=== PATIENT | male | born 1955 | race Caucasian/White ===

== ENCOUNTER 2023-01-28 09:27 | Day surgery (SDC) | payer MEDICARE, OTHER ==
[~2023-01-28] VITALS: Ht 180.3 cm; Wt 93.9 kg
[~2023-01-28 09:27] MED LIST: CELE1CAP8 PO; FINA5TAB4 PO; GABA-1250 PO; METO25TA93 PO; ROSU20TA14 PO
[2023-01-28] MEDS ORDERED: IODIXANOL 320MG/ML 100ML BTL IV ONE (11:20)
[2023-01-28] MEDS ORDERED: LIDOCAINE 2%HCL (LOCAL ANESTH.) INJ 20ML MDV ONE (11:20)
[2023-01-28] MEDS ORDERED: SODIUM CHL 0.9% 0 ML ONE (11:31)
[2023-01-28] MEDS ORDERED: HEPARIN SODIUM (PORCINE) 5000 UNITS/ML 1ML VIAL ONE (11:31)
[2023-01-28] MEDS ORDERED: ANGIOMAX 250 MG VIAL IV ONE (11:31)
[2023-01-28] MEDS ORDERED: VERAPAMIL 2.5MG/ML INJ 2ML VIAL IV ONE (11:31)
[2023-01-28] MEDS ORDERED: fentaNYL CITRATE 100 MCG/2 ML VL ONE (11:31)
[2023-01-28] MEDS ORDERED: MIDAZOLAM HCL 2MG/2ML 2ml VIAL (1mg/ml) ONE (11:31)
== END 2023-01-28 14:35 | disposition home or self-care (01) ==
LOC: CATH 09:27
PROVIDERS: ATTEND Internal Medicine
DX: R94.39 Abnormal result of other cardiovascular function study (principal); I25.118 Atherosclerotic heart disease of native coronary artery with other forms of angina pectoris; I10 Essential (primary) hypertension; Z79.01 Long term (current) use of anticoagulants; Z79.899 Other long term (current) drug therapy; Z79.82 Long term (current) use of aspirin; Z98.890 Other specified postprocedural states
CPT/HCPCS: 93458; C1894; J1644; J2250; J3010; Q9967; 99152; 99153

== ENCOUNTER 2024-06-01 08:21 | Emergency (ER) | payer MEDICARE, OTHER ==
[~2024-06-01] VITALS: Ht 154.9 cm; Wt 94.0 kg
[~2024-06-01 08:21] MED LIST changes: +CELE1CAP29 PO; -CELE1CAP8 PO
[2024-06-01 08:54] LABS: Urine Bacteria None Seen /hpf (None Seen)
[2024-06-01 09:11] LABS: Urine Blood Negative /uL (Negative); Urine Clarity Turbid (Clear); Urine Mucus FEW (None Seen); Urine Protein, UAD TRACE (Negative); Urine Specific Gravity 1.031 (1.001-1.035); Urine Urobilinogen 3 mg/dL (Negative); Urine WBC 27 /hpf (0 - 3); Urine pH 5.5 (5.0-9.0)
[2024-06-01 09:14] LABS: Urine Color Orange (Yellow)
--- NOTE | 2024-06-01 10:02 | ED.PDOC ---
History of Present Illness HPI Comments 69 y/o M presents with c/o intermittent hematuria with associated fatigue for the past 2x days, today. Patient endorses Hx of BPH s/p surgical intervention and finasteride medication use, currently, and kidney stones. Patient comments concern on, possibly, passing a kidney stone. He reports no recent injuries, substance use/exposure, or sexual activity. He denies having any penile pain, dysuria, weakness, lightheadedness, fever, chills, or other associated symptoms or modifier at this time. Chief Complaint: Urinary Time Seen by MD: 09:20 Primary Care Provider: ONI Lopez Notes: Nurses Notes, Medications, Allergies Allergies: Coded Allergies: Penicillins (Unverified Allergy, Severe, 04/21/23) Uncoded Allergies: STEROID (Allergy, Severe, 04/21/23) Home Meds Reported Medications Celecoxib (Celecoxib) 200 Mg Cap, 200 MG PO DAILY for ARTHRITIS, CAP 01/25/23 Rosuvastatin Calcium (Crestor) 20 Mg Tab, 1 TAB PO DAILY for CHOLESTEROL 01/25/23 Finasteride (Finasteride) 5 Mg Tab, 5 MG PO DAILY for BPH 01/25/23 Metoprolol Succinate (Metoprolol Succinate Er) 25 Mg Tab, 1 TAB PO DAILY for HTN 01/25/23 Gabapentin (Gabapentin) 300 Mg Cap, 300 MG PO DAILY for NEUROPATHY 01/25/23 Information Source: Patient Mode of Arrival: Ambulatory Severity: Moderate Timing: Days Duration: Intermittent Prehospital treatment: None Past Medical History PAST MEDICAL HISTORY: High Lipids, HTN, Kidney Stones Past Medical History (Other): BPH s/p surgical intervention, current left hernia, left-sided facial paralysis Surgical History: Hernia Repair Surgical History (Other): left ear Sx Family History Family History: Unknown Social History Smoker: Non-Smoker Alcohol: Occasionally Drugs: Denies Drug Use Lives In: Home Constitutional: reports: fatigue Genitourinary: reports: hematuria All Other Systems: Reviewed and Negative (negative unless otherwise stated in HPI) Physical Exam General Appearance: Mild Distress HEENT: Normal ENT Inspection, PERRL/EOMI, Other (Facial palsy left side) Neck: Full Range of Motion, Non-Tender Respiratory: Lungs Clear, No Respiratory Distress, Normal Breath Sounds, Other (Some tenderness over the left ribcage from old injury) Cardiovascular: No Edema, No JVD, No Murmur, No Gallop, Normal Peripheral Pulses, Regular Rate/Rhythm Breast Exam: Deferred Gastrointestinal: No Organomegaly, Non Tender, No Pulsatile Mass, Normal Bowel Sounds, Soft, Other (Left inguinal hernia small) Genitalia: Deferred Pelvic: Deferred Rectal: Deferred Extremities: No calf tenderness, Normal capillary refill, Normal inspection, Normal range of motion, Non-tender, No pedal edema Neurologic: Alert, clinical operations specialist II-XII nml as Tested, No Motor Deficits, Normal Affect, Normal Mood, No Sensory Deficits Cerebellar Function: Normal Reflexes: Normal Skin: Dry, Normal Color, Warm Peripheral Pulses: 1+ carotid (R), 1+ carotid (L) Lymphatic: No Adenopathy Was a procedure done? Was a procedure done?: No Differential Dx Considerations may include: nephrolithiasis, pyelonephritis, cystitis, anemia bladder cancer X-Ray, Labs, Meds, VS Vital Signs Date Time Temp Pulse Resp B/P (MAP) Pulse Ox O2 Delivery O2 Flow Rate FiO2 06/01/24 10:05 71 17 96 Room Air 06/01/24 08:44 97.6 74 18 151/80 (103) 97 Lab Test 06/01/24 10:04 06/01/24 08:30 Range/Units White Blood Count 7.1 4.4-10.8 10^3/uL Red Blood Count 5.32 4.5-5.90 10^6/uL Hemoglobin 17.8 H 13.5-17.5 g/dL Hematocrit 51.7 41.0-53.0 % Mean Corpuscular Volume 97.2 80.0-100.0 fL Mean Corpuscular Hemoglobin 33.4 H 28.0-32.0 pg Mean Corpuscular Hemoglobin Concent 34.4 32.0-36.0 g/dL Red Cell Distribution Width 13.3 11.8-14.3 % Platelet Count 192 140-450 10^3/uL Mean Platelet Volume 7.9 6.9-10.8 fL Neutrophils (%) (Auto) 74.1 37.0-80.0 % Lymphocytes (%) (Auto) 16.4 10.0-50.0 % Monocytes (%) (Auto) 6.7 0.0-12.0 % Eosinophils (%) (Auto) 2.3 0.0-7.0 % Basophils (%) (Auto) 0.5 0.0-2.0 % Neutrophils # (Auto) 5.3 1.6-8.6 10 ^3/uL Lymphocytes # (Auto) 1.2 0.4-5.4 10 ^3/uL Monocytes # (Auto) 0.5 0-1.3 10 ^3/uL Eosinophils # (Auto) 0.2 0-0.8 10 ^3/uL Basophils # (Auto) 0 0-0.2 10 ^3/uL Nucleated Red Blood Cells 0.1 % Sodium Level 137 136-145 mmol/L Potassium Level 4.3 3.5-5.1 mmol/L Chloride Level 105 98-107 mmol/L Carbon Dioxide Level 29 20-31 mmol/L Anion Gap 3 L 5-15 Blood Urea Nitrogen 13 9-23 mg/dL Creatinine 1.09 0.700-1.30 mg/dL Glomerular Filtration Rate Calc 73 >90 mL/min BUN/Creatinine Ratio 11.9 10.0-20.0 Serum Glucose 107 H 74-106 mg/dL Calcium Level 10.5 H 8.7-10.4 mg/dL Magnesium Level 2.3 1.6-2.6 mg/dL Total Bilirubin 1.0 0.2-1.0 mg/dL Aspartate Amino Transferase (AST) 15 13-40 U/L Alanine Aminotransferase (ALT) 32 7-40 U/L Alkaline Phosphatase 53 46-116 U/L Total Protein 7.2 5.7-8.2 g/dL Albumin 4.8 3.2-4.8 g/dL Lipase 35 12-53 U/L Urine Color Stuart H Yellow Urine Clarity Turbid H Clear Urine pH 5.5 5.0-9.0 Urine Specific [place] 1.031 1.001-1.035 Urine Protein Trace H Negative Urine Ketones Negative Negative Urine Blood Negative Negative /uL Urine Nitrite 1+ H Negative Urine Bilirubin 1+ Negative Urine Urobilinogen 3 H Negative mg/dL Urine Leukocyte Esterase Negative Negative /uL Urine RBC 56 0 - 3 /hpf Urine WBC 27 0 - 3 /hpf Urine Squamous Epithelial Cells Few <5 /hpf Urine Calcium Oxalate Crystals Mod None Seen Urine Bacteria None seen None Seen /hpf Urine Mucus Few None Seen Urine Glucose Normal Normal mg/dL Current Medications Medications (Trade) Dose Ordered Sig/Sarina Route Start Time Stop Time Status Last Admin Sodium Chloride 500 ml @ 500 mls/hr Q1H ONCE IVB 06/01/24 09:45 06/01/24 10:44 DC 06/01/24 10:[address] [address] Ph: [phone] DIAGNOSTIC IMAGING Diagnostic Imaging Report : [id number] Signed PATIENT: SAEID VILLEGAS ACCT: [id number] UNIT: [id number] : 1955 LOC: ER ROOM / BED: / AGE / SEX: 69 / M ADM STATUS: REG ER SERVICE 1 ORDERING PHYSICIAN: PERRY LAM MD PROCEDURE(s): ABPLIV - CT AB PEL WITH IV CON ONLY REASON: Recurrent hematuria ORDER NUMBER(s): [id number], ACCESSION NUMBER(s): [id number] Exam: CT CT AB PEL WITH IV CON ONLY History: Recurrent hematuria COMPARISON: None Technique: Multidetector spiral CT of the abdomen and pelvis was performed from lung bases to pubic symphysis. Intravenous contrast was administered during this examination. Portal venous imaging was obtained. Axial, coronal and sagittal multiplanar reformats were performed by the technologist on a separate workstation. Radiation Dose : Abdomen/Pelvis: CTDIvol 15 mGy, DLP 766 mGy*cm. CONTRAST: Type of contrast: Omni 300 Contrast injected: 100 mL Findings: Lung Bases: No acute or significant lung base finding. Normal heart size. No pleural or pericardial effusion. Liver: The liver is normal in size. No focal lesions. Normal hepatic vascular enhancement. Gallbladder and biliary Tree: Unremarkable Spleen: Unremarkable Pancreas: The pancreas is normal in appearance without focal lesions or abnormal enhancement. Adrenal Glands: Unremarkable Kidneys: No hydronephrosis. Subcentimeter left upper pole renal cyst. Bladder: Unremarkable Bowel: The stomach is grossly normal in appearance. Small bowel and colon are normal in caliber and distribution. Normal appendix is visualized in the right lower quadrant without findings of appendicitis. Sigmoid diverticulosis. Ascites: Absent Lymphadenopathy: No mesenteric, retroperitoneal or periportal lymphadenopathy. Abdominal wall and Mesentery: Unremarkable. Vasculature: The visualized abdominal aorta is normal in size and caliber. Abdominal and pelvic vessels demonstrate normal enhancement. Pelvic Organs: Prostate is enlarged. Musculoskeletal: No aggressive focal bony lesions, acute fractures or dislocation. IMPRESSION: 1. No acute abdominal or pelvic finding. No hydronephrosis. Subcentimeter left renal cyst. Prostatomegaly. Sigmoid diverticulosis. Radiation optimization: All CT scans at this facility use at least one of these dose optimization techniques: Automated exposure control mA and/or kV adjustment per patient size (includes targeted exams where dose is matched to clinical indication) or iterative reconstruction. HS:Y ATED BY: DEAN SANCHEZ MD DICTATED DATE/TIME: 06/01/24 112 SIGNED BY: DEAN SANCHEZ MD SIGNED DATE/TIME: 06/01/241128 CC: X-Ray, Labs, Meds, VS Comment Course in the emergency department eventful patient came in complaining of blood in the urine and he has history of hypertension BPH and high cholesterol Urine shows 1+ nitrites 3+ urobilinogen positive RBCs and positive white cells surgical patient had prostate surgery hernia surgery and right ear surgery with a facial palsy complicated CBC normal CMP negative Lipase [address] abdomen and pelvis is negative Patient will be discharged home to follow up with his PCP Time of 1ST Reevaluation: 09:50 Reevaluation 1ST: Unchanged Time of 2ND Reevaluation: 14:25 Reevaluation 2ND: Improved Consultation: PCP, Urology Patient Education/Counseling: Diagnosis, Treatment, Prognosis, Need For Follow Up Family Education/Counseling: Diagnosis, Treatment, Prognosis, Need For Follow Up, No Family Present Departure 1 Departure Time of Disposition: 14:28 Impression: Primary Impression: BPH (benign prostatic hyperplasia) Additional Impressions: Hematuria Qualified Codes: R31.9 - Hematuria, unspecified UTI (urinary tract infection) Qualified Codes: N30.01 - Acute cystitis with hematuria Disposition: HOME / SELF CARE / HOMELESS Condition: Fair Additional Instructions: Push fluids and follow up with your PCP in a urologist e-Prescriptions Ciprofloxacin Hcl (Cipro) 500 Mg Tab 1 TAB PO BID for 10 Days, #20 TAB Prov: PERRY LAM MD 06/01/24 Discharged With: Self Critical Care Note Critical Care Time?: No Stability Stability form required: No Heart Score Heart Score: Heart Score Response (Comments) Value History N/A 0 EKG N/A 0 Age >65 2 Risk Factors 1 or 2 risk factors 1 Troponin N/A 0 Total 3 I personally scribed for PERRY LAM MD ([email or web address]) on 06/01/24 at 10:02. Electronically submitted by Baljinder Webb ([email or web address]). I personally scribed for PERRY LAM MD ([email or web address]) on 06/01/24 at 11:56. Electronically submitted by Baljinder Webb ([email or web address]). PERRY LAM MD Jun 01, 2024 10:02
[2024-06-01] MEDS: SODIUM CHLORIDE 0.9% 500 ML IVB ONE (10:04)
[2024-06-01 10:22] LABS: Basophils # (auto) 0 10 ^3/uL (0-0.2); Basophils % (auto) 0.5 % (0.0-2.0); Eosinophils # (auto) 0.2 10 ^3/uL (0-0.8); Eosinophils % (auto) 2.3 % (0.0-7.0); Hematocrit 51.7 % (41.0-53.0); Hemoglobin 17.8 g/dL (13.5-17.5); Lymphocytes # (auto) 1.2 10 ^3/uL (0.4-5.4); Lymphocytes % (auto) 16.4 % (10.0-50.0); Mean Corpuscular Hemoglobin 33.4 pg (28.0-32.0); Mean Corpuscular Hgb Conc. 34.4 g/dL (32.0-36.0); Mean Corpuscular Volume 97.2 fL (80.0-100.0); Monocytes # (auto) 0.5 10 ^3/uL (0-1.3); Monocytes % (auto) 6.7 % (0.0-12.0); Neutrophils # (auto) 5.3 10 ^3/uL (1.6-8.6); Neutrophils % (auto) 74.1 % (37.0-80.0); Nucleated Red Blood Cells % 0.1 %; Platelet Count (auto) 192 10^3/uL (140-450); Red Blood Cells 5.32 10^6/uL (4.5-5.90); Red Cell Distribution Width 13.3 % (11.8-14.3); White Blood Cell 7.1 10^3/uL (4.4-10.8)
[2024-06-01 10:35] LABS: Alanine Aminotransferase 32 U/L (7-40); Albumin 4.8 g/dL (3.2-4.8); Alkaline Phosphatase 53 U/L (46-116); Anion Gap 3 (5-15); Aspartate Aminotransferase 15 U/L (13-40); BUN/Creatinine Ratio 11.9 (10.0-20.0); Blood Urea Nitrogen 13 mg/dL (9-23); Carbon Dioxide 29 mmol/L (20-31); Chloride 105 mmol/L (98-107); Magnesium 2.3 mg/dL (1.6-2.6); Potassium 4.3 mmol/L (3.5-5.1); Sodium 137 mmol/L (136-145)
[2024-06-01 10:36] LABS: Total Protein 7.2 g/dL (5.7-8.2)
[2024-06-01 10:40] LABS: Calcium 10.5 mg/dL (8.7-10.4); Glucose 107 mg/dL (74-106)
[2024-06-01] MEDS: IOHEXOL 300 MG/ML 100ML BOTTLE IJ ONE (11:05)
[2024-06-01 11:07] LABS: Lipase 35 U/L (12-53)
--- NOTE | 2024-06-01 11:32 | DVH ---
Exam: CT CT AB PEL WITH IV CON ONLY History: Recurrent hematuria COMPARISON: None Technique: Multidetector spiral CT of the abdomen and pelvis was performed from lung bases to pubic symphysis. Intravenous contrast was administered during this examination. Portal venous imaging was obtained. Axial, coronal and sagittal multiplanar reformats were performed by the technologist on a separate workstation. Radiation Dose : Abdomen/Pelvis: CTDIvol 15 mGy, DLP 766 mGy*cm. CONTRAST: Type of contrast: Omni 300 Contrast injected: 100 mL Findings: Lung Bases: No acute or significant lung base finding. Normal heart size. No pleural or pericardial effusion. Liver: The liver is normal in size. No focal lesions. Normal hepatic vascular enhancement. Gallbladder and biliary Tree: Unremarkable Spleen: Unremarkable Pancreas: The pancreas is normal in appearance without focal lesions or abnormal enhancement. Adrenal Glands: Unremarkable Kidneys: No hydronephrosis. Subcentimeter left upper pole renal cyst. Bladder: Unremarkable Bowel: The stomach is grossly normal in appearance. Small bowel and colon are normal in caliber and d istribution. Normal appendix is visualized in the right lower quadrant without findings of appendici tis. Sigmoid diverticulosis. Ascites: Absent Lymphadenopathy: No mesenteric, retroperitoneal or periportal lymphadenopathy. Abdominal wall and Mesentery: Unremarkable. Vasculature: The visualized abdominal aorta is normal in size and caliber. Abdominal and pelvic vess els demonstrate normal enhancement. Pelvic Organs: Prostate is enlarged. Musculoskeletal: No aggressive focal bony lesions, acute fractures or dislocation. IMPRESSION: 1. No acute abdominal or pelvic finding. No hydronephrosis. Subcentimeter left renal cyst. Prostatom egaly. Sigmoid diverticulosis. Radiation optimization: All CT scans at this facility use at least one of these dose optimization pippa hniques: Automated exposure control mA and/or kV adjustment per patient size (includes targeted exams where dose is matched to clinical indication) or iterative reconstruction. HS:Y
[2024-06-01] MEDS ORDERED: CIPR-173 PO (14:31)
[2024-06-01 14:36] VITALS: BP 148/77; PULSE 69; RESP 16; TEMP 97.8; O2SAT 98
== END 2024-06-01 14:41 | disposition home or self-care (01) ==
LOC: ER 08:21
DX: N40.0 Benign prostatic hyperplasia without lower urinary tract symptoms (principal); R31.9 Hematuria, unspecified; N39.0 Urinary tract infection, site not specified; I10 Essential (primary) hypertension; E78.00 Pure hypercholesterolemia, unspecified; Z79.1 Long term (current) use of non-steroidal anti-inflammatories (NSAID); Z79.899 Other long term (current) drug therapy; Z88.0 Allergy status to penicillin; Z98.890 Other specified postprocedural states
CPT/HCPCS: 36415; 74177; 80053; 81001; 83690; 83735; 85025; 99285; J7040; Q9967